=== PATIENT | male | born 1980 | race African-American/Black ===

== ENCOUNTER 2024-08-18 22:19 | Inpatient (IN) | payer OTHER ==
[2024-08-18 23:36] VITALS: BMI 21.7
[2024-08-19] MEDS ORDERED: BENZONATATE 200 MG CAPSULE PO PRN (00:45)
[2024-08-19] MEDS ORDERED: MAG HYDROX/AL HYDROX/SIMETH 30 ML UNIT-DOSE CUP PO PRN (00:45)
[2024-08-19] MEDS ORDERED: POLYETHYLENE GLYCOL (HEALTHYLAX) 3350 17 GM PACKET PO PRN (00:45)
[2024-08-19] MEDS ORDERED: NICOTINE POLACRILEX 2 MG GUM BUC PRN (00:45)
[2024-08-19] MEDS ORDERED: NALOXONE (NARCAN) HCL 4 MG/0.1 ML SPRAY NS PRN (00:45)
[2024-08-19] MEDS ORDERED: BISMUTH SUBSALICYLATE 524 MG/30 ML PO PRN (00:45)
[2024-08-19] MEDS ORDERED: BENZOCAINE/MENTHOL (CHLORASEPTIC ) LOZENGE MM PRN (00:45)
[2024-08-19] MEDS ORDERED: ONDANSETRON *ODT* 4 MG TABLET SL PRN (00:45)
[2024-08-19] MEDS ORDERED: guaiFENesin 600 MG TABLET.ER (FP) PO PRN (00:45)
[2024-08-19] MEDS ORDERED: MAGNESIUM HYDROX 2400MG/30ML ORAL SUSPENSION 30 ML CUP PO PRN (00:45)
[2024-08-19] MEDS ORDERED: DICYCLOMINE HCL 10 MG CAPSULE PO PRN (00:45)
[2024-08-19] MEDS ORDERED: IBUPROFEN 400 MG TABLET (FP) PO PRN (00:45)
[2024-08-19] MEDS ORDERED: levETIRAcetam 500 MG TABLET (FP) PO ONE (01:34)
[2024-08-19] MEDS: levETIRAcetam 500 MG TABLET (FP) PO ONE (01:36)
[2024-08-19] MEDS ORDERED: levETIRAcetam 500 MG TABLET (FP) PO SCH (10:00)
[2024-08-19] MEDS: NICOTINE 21 MG/24 HOURS TOPICAL PATCH TD SCH (10:15)
[2024-08-19] MEDS: PRENATAL VITAMINS W/ FOLIC ACID TABLET (FP) PO SCH (10:16)
[2024-08-19] MEDS: levETIRAcetam 500 MG TABLET (FP) PO SCH (10:17)
[2024-08-19] MEDS: LORazepam 2 MG TABLET PO SCH (10:17)
[2024-08-19] MEDS: THIAMINE 100 MG TABLET PO SCH (22:16)
[2024-08-19] MEDS: MELATONIN 5 MG TABLETS PO SCH (22:17)
[2024-08-20] MEDS: METHOCARBAMOL 500 MG TABLET PO PRN (09:54)
[2024-08-20] MEDS: IBUPROFEN 600 MG TABLET (FP) PO PRN (09:54)
[2024-08-20 12:26] LABS: HEMATOCRIT 32.5 % (40.1-51.0); HEMOGLOBIN 9.8 g/dL (13.7-17.5); MCHC 30.2 g/dl (32.3-36.5); MEAN CELL VOLUME 86.4 fl (79.0-92.2); MEAN PLT VOLUME 11.4 fl (9.4-12.4); PLATELET COUNT 200 x10^3/uL (163-337); RDW 19.2 % (12.1-15.9)
[2024-08-20 12:44] LABS: POTASSIUM 3.9 mmol/L (3.5-5.1)
[2024-08-20 12:47] LABS: ALBUMIN 3.6 g/dl (3.4-5.0); BLOOD UREA NITROGEN 16.6 mg/dL (7-18)
[2024-08-20 12:51] LABS: CREATININE 0.9 mg/dL (0.55-1.3)
[2024-08-20 12:52] LABS: BILIRUBIN,TOTAL 0.4 mg/dL (0.2-1); TOT PROT 7.6 g/dl (6.4-8.2)
[2024-08-21] MEDS: LORazepam 1 MG TABLET PO SCH (05:46)
[2024-08-21] MEDS: LORazepam 1 MG TABLET PO PRN (14:04)
[2024-08-21] MEDS: NALTREXONE HCL 50 MG TABLET PO ONE (16:12)
[2024-08-21] MEDS: SUVOREXANT 5 MG TABLET PO PRN (22:39)
[2024-08-22] MEDS ORDERED: LORazepam 0.5 MG TABLET PO PRN
[2024-08-22] MEDS: LORazepam 0.5 MG TABLET PO SCH (05:57)
[2024-08-22] MEDS: NALTREXONE HCL 50 MG TABLET PO SCH (10:11)
[2024-08-23] MEDS: LORazepam 0.5 MG TABLET PO ONE (05:55)
[2024-08-23] MEDS: LOPERAMIDE HCL 2 MG CAPSULE PO PRN (14:06)
[2024-08-23] MEDS: hydrOXYzine PAMOATE 25 MG CAPSULE (FP) PO PRN (18:19)
[2024-08-23] MEDS: ACETAMINOPHEN 325 MG TABLET (FP) PO PRN (20:42)
[2024-08-24 09:00] VITALS: BP 128/80; PULSE 73; RESP 18; TEMP 97.7
== END 2024-08-24 11:59 | disposition other institution (70) | DRG 774 ==
LOC: YASAS 22:19 → Y6N 08-19 02:00
PROVIDERS: ADMIT Allergy & Immunology; ATTEND Allergy & Immunology
PROC: HZ2ZZZZ Detoxification Services for Substance Abuse Treatment (ICD-10-PCS; principal; 2024-08-19)
DX: F10.230 Alcohol dependence with withdrawal, uncomplicated (principal); F14.20 Cocaine dependence, uncomplicated; F17.210 Nicotine dependence, cigarettes, uncomplicated; F32.A Depression, unspecified; G40.909 Epilepsy, unspecified, not intractable, without status epilepticus; G47.00 Insomnia, unspecified; K74.60 Unspecified cirrhosis of liver; M54.50 Low back pain, unspecified; G89.29 Other chronic pain
CPT/HCPCS: 36415; 80053; 80177; 80305; 80307; 85027; 86780; 87811; 93005; 93010

== ENCOUNTER 2024-08-24 11:46 | Inpatient (IN) | payer OTHER ==
[2024-08-24] MEDS ORDERED: IBUPROFEN 400 MG TABLET (FP) PO PRN (13:00)
[2024-08-24] MEDS ORDERED: MAG HYDROX/AL HYDROX/SIMETH 30 ML UNIT-DOSE CUP PO PRN (13:00)
[2024-08-24] MEDS ORDERED: BENZONATATE 200 MG CAPSULE PO PRN (13:00)
[2024-08-24] MEDS ORDERED: POLYETHYLENE GLYCOL (HEALTHYLAX) 3350 17 GM PACKET PO PRN (13:00)
[2024-08-24] MEDS ORDERED: LOPERAMIDE HCL 2 MG CAPSULE PO PRN (13:00)
[2024-08-24] MEDS ORDERED: NALOXONE (NARCAN) HCL 4 MG/0.1 ML SPRAY NS PRN (13:00)
[2024-08-24] MEDS ORDERED: guaiFENesin 600 MG TABLET.ER (FP) PO PRN (13:00)
[2024-08-24] MEDS ORDERED: BENZOCAINE/MENTHOL (CHLORASEPTIC ) LOZENGE MM PRN (13:00)
[2024-08-24] MEDS ORDERED: MAGNESIUM HYDROX 2400MG/30ML ORAL SUSPENSION 30 ML CUP PO PRN (13:00)
[2024-08-24] MEDS: levETIRAcetam 500 MG TABLET (FP) PO SCH (21:32)
[2024-08-24] MEDS: THIAMINE 100 MG TABLET PO SCH (21:32)
[2024-08-24] MEDS: MELATONIN 5 MG TABLETS PO SCH (21:33)
[2024-08-25] MEDS: PRENATAL VITAMINS W/ FOLIC ACID TABLET (FP) PO SCH (09:41)
[2024-08-25] MEDS: NALTREXONE HCL 50 MG TABLET PO SCH (09:42)
[2024-08-25] MEDS: hydrOXYzine PAMOATE 25 MG CAPSULE (FP) PO PRN (09:58)
[2024-08-25 13:38] LABS: HEMATOCRIT 40.8 % (40.1-51.0); HEMOGLOBIN 12.1 g/dL (13.7-17.5); MCHC 29.7 g/dl (32.3-36.5); MEAN CELL VOLUME 88.7 fl (79.0-92.2); MEAN PLT VOLUME 10.5 fl (9.4-12.4); PLATELET COUNT 301 x10^3/uL (163-337); RDW 21.8 % (12.1-15.9)
[2024-08-26 15:04] LABS: PH,URINE 5.5 (5.0-8.0); URINE APPEARANCE CLEAR; URINE BILIRUBIN NEGATIVE (NEGATIVE); URINE COLOR YELLOW; URINE GLUCOSE (UA) NEGATIVE (NEGATIVE); URINE KETONE NEGATIVE (NEGATIVE); URINE LEUK ESTERASE NEGATIVE (NEGATIVE); URINE NITRITE NEGATIVE (NEGATIVE); URINE PROTEIN NEGATIVE (NEGATIVE); URINE UROBILINOGEN 0.2 mg/dL (0.2-1.0)
[2024-08-27] MEDS: IBUPROFEN 600 MG TABLET (FP) PO PRN (08:21)
[2024-08-28] MEDS: ACETAMINOPHEN 325 MG TABLET (FP) PO PRN (00:47)
[2024-08-30 06:38] VITALS: RESP 16
[2024-08-31 06:38] VITALS: BP 112/76; PULSE 69; TEMP 96.9
== END 2024-08-31 17:30 | disposition home or self-care (01) | DRG 772 ==
LOC: YASAS 11:46 → Y3E 11:47 → Y5N 08-25 14:41
PROVIDERS: ADMIT Psychiatry & Neurology Pain Medicine; ATTEND Psychiatry & Neurology Pain Medicine
PROC: HZ42ZZZ Group Counseling for Substance Abuse Treatment, Cognitive-Behavioral (ICD-10-PCS; principal; 2024-08-24)
DX: F10.20 Alcohol dependence, uncomplicated (principal); F17.210 Nicotine dependence, cigarettes, uncomplicated; G40.909 Epilepsy, unspecified, not intractable, without status epilepticus; K70.30 Alcoholic cirrhosis of liver without ascites
CPT/HCPCS: 36415; 81003; 85027; 86780